=== PATIENT | female | born 1985 | race African-American/Black ===

== ENCOUNTER 2017-03-06 08:59 | Emergency (ER) | payer SELFPAY ==
[2017-03-06] MEDS ORDERED: Ketorolac 30 MG/ML SDV IVPUSH ONE (09:25)
--- NOTE | 2017-03-06 10:24 | CR ---
EXAMINATION: PA chest radiograph. HISTORY: Shortness of breath. FINDINGS: The trachea is midline. The cardiomediastinal silhouette is within normal limits. No pulmonary infilt rates, effusions or pneumothorax. Osseous structures appear unremarkable. IMPRESSION: No acute cardiopulmonary process.
--- NOTE | 2017-03-06 10:25 | CR ---
EXAMINATION: Cervical spine HISTORY: Pain COMPARISON: None TECHNIQUE: AP and lateral views FINDINGS: The cervical spinal alignment is normal. The vertebral body heights and disc spaces appear well-maintained. There is no fracture or dislocation. Bone mineralization appears normal. The prevert ebral soft tissues are within normal limits. IMPRESSION: Unremarkable cervical spine radiographs.
--- NOTE | 2017-03-06 10:26 | CR ---
EXAMINATION: Pelvis HISTORY: Pain COMPARISON: None TECHNIQUE: AP view FINDINGS: There is no acute osseous abnormality, dislocation, or fracture. An IUD projects over the m id pelvis. The SI joints are symmetric. The iliopectineal and ilioischial lines are intact. Hip joint spaces appear preserved. Bone mineralization is normal. IMPRESSION: No acute osseous abnormality identified.
[2017-03-06 10:35] LABS: CHLORIDE,CL 107 mmol/L (98-110); SODIUM,NA 140 mmol/L (136-146)
[2017-03-06] MEDS ORDERED: Bacitracin Oint 1 GM U/D Packet TOP ONE (10:42)
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
[2017-03-06 11:37] VITALS: BP 92/63
== END 2017-03-06 11:00 | disposition home or self-care (01) ==
LOC: MW.ED 08:59
DX: S40.212A Abrasion of left shoulder, initial encounter (principal); V49.88XA Car occupant (driver) (passenger) injured in other specified transport accidents, initial encounter; Y92.410 Unspecified street and highway as the place of occurrence of the external cause
CPT/HCPCS: 36415; 71010; 72040; 72170; 80053; 81001; 81025; 85025; 96374; 99284; J1885; 99283

== ENCOUNTER 2017-07-09 23:13 | Emergency (ER) | payer SELFPAY ==
[2017-07-09 23:41] VITALS: BP 113/64
--- NOTE | 2017-07-10 00:44 | EDM.PDOC ---
ED HPI GENERAL MEDICAL PROBLEM - General Chief Complaint: Genitourinary Problem Stated Complaint: STOMACH PAIN/BORJAS WHEN URINATING Time Seen by Provider: 07/10/17 00:44 Source of Information: Reports: Patient - History of Present Illness INITIAL COMMENTS - FREE TEXT/NARRATIVE: HISTORY AND PHYSICAL: History of present illness: [Patient presents with burning with urination as well as hesitancy over the last 4 days, last sexual contact was in May with known partner in a monogamous relationship Fever nausea vomiting chills sweats ] Review of systems: As per history of present illness and below otherwise all systems reviewed and negative. Past medical history: As per history of present illness and as reviewed below otherwise noncontributory. Surgical history: As per history of present illness and as reviewed below otherwise noncontributory. Social history: No reported history of drug or alcohol abuse. Family history: As per history of present illness and as reviewed below otherwise noncontributory. Physical exam: HEENT: Atraumatic, normocephalic, pupils reactive, negative for conjunctival pallor or scleral icterus, mucous membranes moist, throat clear, neck supple, nontender, trachea midline. Lungs: Clear to auscultation, breath sounds equal bilaterally, chest nontender. Heart: S1S2, regular, negative for clicks, rubs, or JVD. Abdomen: Soft, nondistended, nontender. Negative for masses or hepatosplenomegaly. Negative for costovertebral tenderness. Pelvis: Stable nontender. Genitourinary: Deferred. Rectal: Deferred. Extremities: Atraumatic, negative for cords or calf pain. Neurovascular unremarkable. Neuro: Awake, alert, oriented. Cranial nerves II through XII unremarkable. Cerebellum unremarkable. Motor and sensory unremarkable throughout. Exam nonfocal. Diagnostics: [UA which are GC Chlamydia ] Therapeutics: []Rocephin 250 mg IM Azithromycin 1 g by mouth Macrobid 100 by mouth twice a day #20 no refill Pyridium Impression: [Dysuria] Definitive disposition and diagnosis as appropriate pending reevaluation and review of above. painful urination Pain Score (Numeric/FACES): 6 - Related Data Allergies Allergy/AdvReac Type Severity Reaction Status Date / Time No Known Allergies Allergy Verified 07/09/17 23:38 Home Meds: Home Meds . [No Known Home Meds] 07/26/14 [History] Past Medical History - Past Health History Medical/Surgical History: Denies Medical/Surgical History HEENT History: Reports: None Cardiovascular History: Reports: None Respiratory History: Reports: None Gastrointestinal History: Reports: None Genitourinary History: Reports: None DISPLAY COORDINATOR History: Reports: Musculoskeletal History: Reports: None Neurological History: Reports: None Psychiatric History: Reports: None Endocrine/Metabolic History: Reports: None Hematologic History: Reports: None Immunologic History: Reports: None Oncologic (Cancer) History: Reports: None Dermatologic History: Reports: None - Infectious Disease History Infectious Disease History: Reports: None - Past Surgical History Head Surgeries/Procedures: Reports: None Female Surgical History: Reports: Section Social & Family History - Family History Family Medical History: Noncontributory - Tobacco Use Smoking Status *Q: Never Smoker Second Hand Smoke Exposure: No - Caffeine Use Caffeine Use: Reports: Soda - Recreational Drug Use Recreational Drug Use: No ED ROS ENT - Review of Systems Review Of Systems: ROS reveals no pertinent complaints other than HPI. ED EXAM, ENT - Physical Exam Exam: See Below Course - Vital Signs Last Recorded V/S: Last Vital Signs Temp 98 F 07/09/17 23:39 Pulse 89 07/09/17 23:39 Resp 18 07/09/17 23:39 BP 113/64 07/09/17 23:39 Pulse Ox 98 07/09/17 23:39 - Orders/Labs/Meds Orders: Active Orders 24 hr Category Date Time Status CHLAMYDIA AND GONORRHEA BY TMA Stat Lab 07/10/17 01:27 Ordered CULTURE URINE [RM] Stat Lab 07/10/17 00:27 Received Azithromycin [Zithromax] Med 07/10/17 01:32 Stat 1,000 mg PO NOW STA cefTRIAXone [Rocephin] Med 07/10/17 01:32 Once 250 mg IM ONETIME ONE Labs: Laboratory Tests 07/10/17 07/10/17 Range/Units 00:27 00:27 Urine Color YELLOW Urine Appearance SLT CLOUDY Urine pH 6.0 (5.0-8.0) Ur Specific [place] >= 1.030 (1.001-1.035) Urine Protein NEGATIVE (NEGATIVE) mg/dL Urine Glucose (UA) NEGATIVE (NEGATIVE) mg/dL Urine Ketones TRACE H (NEGATIVE) mg/dL Urine Occult Blood NEGATIVE (NEGATIVE) Urine Nitrite NEGATIVE (NEGATIVE) Urine Bilirubin NEGATIVE (NEGATIVE) Urine Urobilinogen 1.0 (<2.0) EU/dL Ur Leukocyte Esterase NEGATIVE (NEGATIVE) Urine RBC 0-2 (0-2/HPF) Urine WBC 0-2 (0-5/HPF) Ur Epithelial Cells FEW (NONE-FEW) Calcium Oxalate Crystal MODERATE (NEGATIVE) Urine Bacteria FEW (NEGATIVE) Urine Mucus LIGHT (NONE-MOD) Urine HCG, Qual NEGATIVE (NEGATIVE) Departure - Departure Time of Disposition: 01:34 Disposition: Home, Self-Care 01 Condition: Good Clinical Impression: Dysuria - Discharge Information Referrals: PCP,None [Primary Care Provider] - Forms: ED Department Discharge Additional Instructions: The following information is given to patients seen in the emergency department who are being discharged to home. This information is to outline your options for follow-up care. We provide all patients seen in our emergency department with a follow-up referral. The need for follow-up, as well as the timing and circumstances, are variable depending upon the specifics of your emergency department visit. If you don't have a primary care physician on staff, we will provide you with a referral. We always advise you to contact your personal physician following an emergency department visit to inform them of the circumstance of the visit and for follow-up with them and/or the need for any referrals to a consulting specialist. The emergency department will also refer you to a specialist when appropriate. This referral assures that you have the opportunity for follow-up care with a specialist. All of these measure are taken in an effort to provide you with optimal care, which includes your follow-up. Under all circumstances we always encourage you to contact your private physician who remains a resource for coordinating your care. When calling for follow-up care, please make the office aware that this follow-up is from your recent emergency room visit. If for any reason you are refused follow-up, please contact the [facility] emergency department at and asked to speak to the emergency department charge nurse. - My Orders Last 24 Hours: My Active Orders 07/10/17 00:27 CULTURE URINE [RM] Stat 07/10/17 01:27 CHLAMYDIA AND GONORRHEA BY TMA Stat 07/10/17 01:32 Azithromycin [Zithromax] 1,000 mg PO NOW STA cefTRIAXone [Rocephin] 250 mg IM ONETIME ONE - Assessment/Plan Last 24 Hours: My Active Orders 07/10/17 00:27 CULTURE URINE [RM] Stat 07/10/17 01:27 CHLAMYDIA AND GONORRHEA BY TMA Stat 07/10/17 01:32 Azithromycin [Zithromax] 1,000 mg PO NOW STA cefTRIAXone [Rocephin] 250 mg IM ONETIME ONE
[2017-07-10] MEDS ORDERED: Azithromycin 250 MG Tab PO STA (01:32)
[2017-07-10] MEDS ORDERED: cefTRIAXone 250 MG Vial IM ONE (01:32)
[2017-07-10] MEDS ORDERED: Lidocaine 1% 2 ML ONE (01:46)
[2017-07-10] MEDS ORDERED: Lidocaine 1% 20 ML MDV INJECT ONE (01:48)
== END 2017-07-10 02:07 | disposition home or self-care (01) ==
LOC: MW.ED 23:13
DX: R30.0 Dysuria (principal)
CPT/HCPCS: 81001; 81025; 87086; 87491; 87591; 96372; 99283; A9270; J0696

== ENCOUNTER 2017-12-26 09:27 | Emergency (ER) | payer MEDICAID ==
--- NOTE | 2017-12-26 10:11 | EDM.PDOC ---
ED HPI GENERAL MEDICAL PROBLEM - General Chief Complaint: General Stated Complaint: BLEEDING Time Seen by Provider: 12/26/17 10:08 Source of Information: Reports: Patient History Limitations: Reports: No Limitations - History of Present Illness INITIAL COMMENTS - FREE TEXT/NARRATIVE: HISTORY AND PHYSICAL: [32-year-old female presenting with pain when she urinates/is also complaining of blood in the urine] History of Present Illness: []This pain started about midnight last night and continues at this time 1 occurrence of bloody urine about 10 days ago Patient currently is not on any medications. Patient has history of in 2007 Review of Systems: As per history of present illness and below otherwise all systems reviewed and negative. Past medical history: As per history of present illness and as reviewed below otherwise noncontributory. Surgical history: As per history of present illness and as reviewed below otherwise noncontributory. Social history: No reported history of drug or alcohol abuse. Family history: As per history of present illness and as reviewed below otherwise noncontributory. Physical exam: Alert and oriented female answering questions appropriately speaking in full sentences without any shortness of breath. she is nontoxic in appearance. HEENT: Atraumatic, normocehpalic, pupils reactive, negative for conjunctival pallor or scleral icterus, mucous membranes moist, throat clear, neck supple, nontender, trachea midline. Lungs: Clear to auscultation, breath sounds equal bilaterally, chest non tender. Heart: S1S2, regular, negative for clicks, rubs, or JVD. Abdomen: Soft, nondistended, tender on palpation. Negative for masses or hepatossplenmegaly. Positive for costovertebral tenderness. Pelvis: Stable nontender. Genitourinary: Deferred. Rectal: Deferred Extremities: Atraumatic, negative for cords or calf pain. Neurovascular unremarkable. Neuro: Awake, alert, oriented. Cranial nerves II through XII unremarkable. Cerebellum unremarkable. Motor and sensory unremarkable throughout. Exam nonfocal. Patient has been unable to void since being in the emergency department and is drinking water at this time. Dark urine was collected from clean-catch then a straight catheter in and out was performed with a small amount of clear yellow urine small amount of sediment noted this will be sent for analysis as well On pelvic examination there was a large amount of dark red blood in the vaginal vault. Blood at the cervical os. tender on mipulation and on the straight cath. Small introitus. mild cervial motion tenderness. Diagnostics: [] UA, urine culture Therapeutics: [] Impression: []Urinary Tract infection Vaginal bleeding Plan: []Discharged home Cipro 500 mg 1 tablet twice a day 7 days Follow-up with your primary care provider Marielle Joseph NP Definitive disposition and diagnosis as appropriate pending reevaluation and review of above. Onset: Sudden Duration: Day(s): Location: Reports: Pelvis Quality: Reports: Burning Severity: Moderate Improves with: Reports: None Worsens with: Reports: None Right Lower Pelvic Pain Score (Numeric/FACES): 5 - Related Data Allergies Allergy/AdvReac Type Severity Reaction Status Date / Time No Known Allergies Allergy Verified 12/26/17 09:42 Home Meds: Home Meds Ciprofloxacin HCl [Cipro] 500 mg PO BID #14 tablet 12/26/17 [Rx] Past Medical History - Past Health History Medical/Surgical History: Denies Medical/Surgical History HEENT History: Reports: None Cardiovascular History: Reports: None Respiratory History: Reports: None Gastrointestinal History: Reports: None Genitourinary History: Reports: None [employer] History: Reports: Musculoskeletal History: Reports: None Neurological History: Reports: None Psychiatric History: Reports: None Endocrine/Metabolic History: Reports: None Hematologic History: Reports: None Immunologic History: Reports: None Oncologic (Cancer) History: Reports: None Dermatologic History: Reports: None - Infectious Disease History Infectious Disease History: Reports: None - Past Surgical History Head Surgeries/Procedures: Reports: None Female Surgical History: Reports: Section Other Female Surgeries/Procedures: C-Sections x3 Social & Family History - Family History Family Medical History: Noncontributory - Tobacco Use Smoking Status *Q: Never Smoker Second Hand Smoke Exposure: No - Caffeine Use Caffeine Use: Reports: None - Recreational Drug Use Recreational Drug Use: No ED ROS GENERAL - Review of Systems Review Of Systems: ROS reveals no pertinent complaints other than HPI. ED EXAM, GENERAL - Physical Exam Exam: See Below (see dictation) Course - Vital Signs Last Recorded V/S: Last Vital Signs Temp 36.2 C 12/26/17 09:43 Pulse 62 12/26/17 11:12 Resp 15 12/26/17 11:12 BP 110/72 06/21/18 11:12 Pulse Ox 98 12/26/17 11:12 - Orders/Labs/Meds Orders: Active Orders 24 hr Category Date Time Status CULTURE URINE [RM] Stat Lab 12/26/17 10:00 Received HCG QUALITATIVE,URINE [URCHEM] Stat Lab 12/26/17 10:00 Ordered Labs: Laboratory Tests 12/26/17 12/26/17 12/26/17 Range/Units 10:00 10:00 11:02 Urine Color RED YELLOW Urine Appearance CLOUDY CLEAR Urine pH 5.0 5.5 (5.0-8.0) Ur Specific [place] >= 1.030 <= 1.005 (1.001-1.035) Urine Protein 30 NEGATIVE (NEGATIVE) mg/dL Urine Glucose (UA) NEGATIVE NEGATIVE (NEGATIVE) mg/dL Urine Ketones NEGATIVE NEGATIVE (NEGATIVE) mg/dL Urine Occult Blood LARGE H MODERATE (NEGATIVE) Urine Nitrite NEGATIVE NEGATIVE (NEGATIVE) Urine Bilirubin NEGATIVE NEGATIVE (NEGATIVE) Urine Urobilinogen 0.2 0.2 (<2.0) EU/dL Ur Leukocyte Esterase NEGATIVE TRACE (NEGATIVE) Urine RBC TOO NUMEROUS TO CT H 0-2 (0-2/HPF) Urine WBC 6-8 0-1 (0-5/HPF) Ur Epithelial Cells RARE RARE (NONE-FEW) Amorphous Sediment MODERATE RARE (NEGATIVE) Urine Bacteria FEW RARE (NEGATIVE) Urine HCG, Qual NEGATIVE (NEGATIVE) Departure - Departure Time of Disposition: 11:56 Disposition: Home, Self-Care 01 Condition: Good Clinical Impression: Lower urinary tract infectious disease, UTI - Discharge Information Prescriptions: Ciprofloxacin HCl [Cipro] 500 mg PO BID #14 tablet Instructions: Urinary Tract Infection, Adult Referrals: PCP,None [Primary Care Provider] - Forms: ED Department Discharge Additional Instructions: The following information is given to patients seen in the emergency department who are being discharged to home. This information is to outline your options for follow-up care. We provide all patients seen in our emergency department with a follow-up referral. The need for follow-up, as well as the timing and circumstances, are variable depending upon the specifics of your emergency department visit. If you don't have a primary care physician on staff, we will provide you with a referral. We always advise you to contact your personal physician following an emergency department visit to inform them of the circumstance of the visit and for follow-up with them and/or the need for any referrals to a consulting specialist. The emergency department will also refer you to a specialist when appropriate. This referral assures that you have the opportunity for followup care with a specialist. All of these measure are taken in an effort to provide you with optimal care, which includes your followup. Under all circumstances we always encourage you to contact your private physician who remains a resource for coordinating your care. When calling for followup care, please make the office aware that this follow-up is from your recent emergency room visit. If for any reason you are refused follow-up, please contact the [facility] emergency department at and asked to speak to the emergency department charge nurse. You have a urinary tract infection Prescription has been sent to your pharmacy for ciprofloxacin 500 mg tablets 1 tablet twice daily 1 week You have some vaginal bleeding I would like you to follow-up with your primary care provide Marce Joseph NP for the vaginal bleeding and urinary tract infection - My Orders Last 24 Hours: My Active Orders 12/26/17 10:00 HCG QUALITATIVE,URINE [URCHEM] Stat - Assessment/Plan Last 24 Hours: My Active Orders 12/26/17 10:00 HCG QUALITATIVE,URINE [URCHEM] Stat
[2017-12-26 11:13] VITALS: BP 110/72
== END 2017-12-26 12:16 | disposition home or self-care (01) ==
LOC: MW.ED 09:27
DX: N39.0 Urinary tract infection, site not specified (principal); N93.9 Abnormal uterine and vaginal bleeding, unspecified
CPT/HCPCS: 81001; 81025; 87086; 99283